=== PATIENT | male | born 1950 | race Caucasian/White ===

== ENCOUNTER → 2021-04-13 | Outpatient (CLI) | payer MEDICARE, BC ==
[~2021-04-13] MED LIST: IOPAMIDOL 370 MG/ML 200 ML INFUS..BTL INJ ONE; SODIUM CHLORIDE 0.9% 50ML 50 ML ONE
[2021-04-13 15:06] LABS: CREATININE, SERUM 0.9 mg/dL (0.72-1.25)
== END ==
LOC: CT 13:57
PROVIDERS: ATTEND Internal Medicine Interventional Cardiology
DX: R07.9 Chest pain, unspecified (principal); I48.91 Unspecified atrial fibrillation; I25.10 Atherosclerotic heart disease of native coronary artery without angina pectoris; I28.8 Other diseases of pulmonary vessels
CPT/HCPCS: 36415; 71275; 82565; 84520; Q9967

== ENCOUNTER → 2022-01-19 | Outpatient (CLI) | payer MEDICARE, BC | LOC: CT 16:06 | PROVIDERS: ATTEND Internal Medicine Interventional Cardiology | DX: I48.0 Paroxysmal atrial fibrillation (principal) | CPT/HCPCS: 71250 ==

== ENCOUNTER → 2022-05-04 | Outpatient (CLI) | payer MEDICARE, BC | LOC: CT 09:33 | PROVIDERS: ATTEND Internal Medicine Interventional Cardiology | DX: I48.0 Paroxysmal atrial fibrillation (principal) | CPT/HCPCS: 71250 ==